=== PATIENT | male | born 1940 | race Caucasian/White ===

== ENCOUNTER 2016-06-14 10:43 | Observation (INO) | payer OTHER ==
[~2016-06-14] VITALS: Ht 170.2 cm; Wt 82.6 kg
[~2016-06-14 10:43] MED LIST: ATIVAN0.5 MG PO; CALCIUM 500 MG1 EACH PO; CALICUM 500+D1 EACH PO; CITALOPRAM HBR10 MG PO; CO Q-10100 MG PO; DAILY VITE1 EAC1 PO; FLOMAX0.4 MG PO; HAWTHORN BERRY PO; IMBRUVICA140 MG PO; K-DUR20 MEQ PO; LASIX20 MG PO; MELATONIN5 M1 PO; MULTI VITAMIN1 EACH PO; MUSCLE RELAXER PO; NEXIUM40 MG PO; OSTERA TABLET1 EACH PO; PREDNISONE10 MG PO; PREDNISONE20 MG PO; PREDNISONE5 MG PO; PREDNISONE50 MG PO; VITAMIN D5000 UNIT PO; XYZAL5 MG PO; ZYRTEC10 M2 PO
[2016-06-14 12:10] LABS: HEMATOCRIT 45.3 % (38.0-50.0); MCH 30.1 PG (29.0-34.0); MCHC 32.9 G/DL (30.0-36.0); MCV 91.5 FL (86-99); MEAN PLAT.VOLUME 10.4 uM^3 (9.0-12.4); RBC DIS.WIDTH-CV 13.9 % (11.8-14.6); RBC DIS.WIDTH-SD 45.3 % (39-53); RED BLOOD COUNT 4.95 M/uL (4.00-5.50)
[2016-06-14 12:13] LABS: PLATELET COUNT 176 K/uL (156-360); WHITE BLOOD COUNT 11.9 K/uL (4.1-10.2)
[2016-06-14 12:24] LABS: CHLORIDE 99 mEq/L (99-109); POTASSIUM 4.5 mEq/L (3.7-5.4); SODIUM 134 mEq/L (136-147)
[2016-06-14 12:25] LABS: GLUCOSE 98 mg/dL (70-99)
[2016-06-14 12:27] LABS: ANION GAP 9 MEQ/L (2-14)
[2016-06-14 12:29] LABS: GFR ESTIMATE (CALCULATED) 57 mL/min/
[2016-06-14 12:30] LABS: UREA NITROGEN (BUN) 20 mg/dL (9-23)
[2016-06-14 14:55] LABS: D-DIMER ELISA 0.81 mg/L FEU (< 0.57)
[2016-06-14 15:00] LABS: LIPASE 17 U/L (1.0-51.0)
[2016-06-14 15:06] LABS: TROP-I INTERPRETATION NEGATIVE; TROPONIN-I < 0.01 ng/mL (0.0-0.30)
[2016-06-14] MEDS ORDERED: IMBRUVICA140 MG PO (17:02)
[2016-06-14] MEDS ORDERED: CALCIUM 500 +1 EACH PO (17:05)
[2016-06-14] MEDS ORDERED: CLEOCIN150 MG PO (17:06)
[2016-06-14] MEDS ORDERED: PREDNISONE10 MG PO ×2 (17:09→17:10)
[2016-06-14] MEDS ORDERED: SYSTANE 0.3-0.1 EACH BOTH EYES (17:09)
[2016-06-14] MEDS ORDERED: TAMSULOSIN HCL0.4 MG PO (17:11)
[2016-06-14] MEDS ORDERED: CITALOPRAM HBR20 MG PO (17:11)
[2016-06-14 19:18] VITALS: BP 114/62
[2016-06-14 22:04] LABS: TROP-I INTERPRETATION NEGATIVE; TROPONIN-I < 0.01 ng/mL (0.0-0.30)
[2016-06-15] VITALS: BP 124/59
[2016-06-15 04:47] VITALS: BP 123/60
[2016-06-15 06:52] LABS: ANION GAP 5 MEQ/L (2-14); CHLORIDE 104 MEQ/L (99-109); GFR ESTIMATE (CALCULATED) > 59 mL/min/; GLUCOSE 79 mg/dL (70-99); POTASSIUM 4.3 MEQ/L (3.7-5.4); SAMPLE HEMOLYSIS CHECK 0; SAMPLE ICTERIC CHECK 0; SAMPLE LIPEMIA CHECK 0; SODIUM 137 MEQ/L (136-147); UREA NITROGEN (BUN) 21 mg/dL (9-23)
[2016-06-15 08:10] VITALS: BP 102/63
[2016-06-15] MEDS ORDERED: AZITHROMYCIN500 M1 PO (11:58)
[2016-06-15 12:12] VITALS: BP 106/64
== END 2016-06-15 14:15 | disposition home or self-care (01) ==
LOC: EME 10:43 → EDOF 16:24 → 5WEST 16:24
PROVIDERS: Emergency Medicine; Internal Medicine
DX: I95.1 Orthostatic hypotension (principal); C91.10 Chronic lymphocytic leukemia of B-cell type not having achieved remission; E87.1 Hypo-osmolality and hyponatremia; M84.48XD Pathological fracture, other site, subsequent encounter for fracture with routine healing; G70.00 Myasthenia gravis without (acute) exacerbation; J32.9 Chronic sinusitis, unspecified; I25.10 Atherosclerotic heart disease of native coronary artery without angina pectoris; Z98.61 Coronary angioplasty status; Z91.040 Latex allergy status
CPT/HCPCS: 70450; 71020; 71275; 80048; 81003; 83690; 84484; 85027; 85379; 93005; 93306; 93880; 99281; 99285; G0378; J1650; J7030

== ENCOUNTER 2016-06-17 12:23 | Inpatient (IN) | payer OTHER ==
[~2016-06-17] VITALS: Ht 170.2 cm; Wt 97.8 kg
[~2016-06-17 12:23] MED LIST changes: +AZITHROMYCIN500 M1 PO; +CALCIUM 500 +1 EACH PO; +CITALOPRAM HBR20 MG PO; +CLEOCIN150 MG PO; +SYSTANE 0.3-0.1 EACH BOTH EYES; +TAMSULOSIN HCL0.4 MG PO
[2016-06-17 14:57] LABS: CHLORIDE 103 mEq/L (99-109); POTASSIUM 5.1 mEq/L (3.7-5.4); SODIUM 134 mEq/L (136-147)
[2016-06-17 15:01] LABS: ANION GAP 10 MEQ/L (2-14); EOSINOPHIL (%) 0 % (0-5); HEMATOCRIT 38.5 % (38.0-50.0); IMMATURE GRANULOCYTE (%) 0.3 % (0.0-0.7); IMMATURE GRANULOCYTE COUNT 0.7 K/uL; LYMPHOCYTE COUNT 1.1 K/uL (1.0-2.8); MCH 30.2 PG (29.0-34.0); MCV 91.4 FL (86-99); MONOCYTE COUNT 1.2 K/uL (0-0.8); NEUTROPHIL (%) 90.1 % (45-76); NEUTROPHIL COUNT 21.4 K/uL (1.8-6.4); RBC DIS.WIDTH-CV 13.6 % (11.8-14.6); RED BLOOD COUNT 4.21 M/uL (4.00-5.50)
[2016-06-17 15:02] LABS: TOTAL BILIRUBIN 2.3 mg/dL (0.0-1.0)
[2016-06-17 15:03] LABS: ALKALINE PHOSPHATASE 64 IU/L (3-129); GFR ESTIMATE (CALCULATED) > 59 mL/min/
[2016-06-17 15:04] LABS: UREA NITROGEN (BUN) 27 mg/dL (9-23)
[2016-06-17 15:05] LABS: D-DIMER ELISA 0.62 mg/L FEU (< 0.57)
[2016-06-17 15:08] LABS: TROP-I INTERPRETATION NEGATIVE; TROPONIN-I < 0.01 ng/mL (0.0-0.30)
[2016-06-17 15:14] LABS: WHITE BLOOD COUNT 23.7 K/uL (4.1-10.2)
[2016-06-17 15:19] LABS: GLUCOSE 110 mg/dL (70-99)
[2016-06-17 15:39] LABS: MEAN PLAT.VOLUME 10.1 uM^3 (9.0-12.4)
[2016-06-17 15:50] LABS: PLATELET COUNT 100 K/uL (156-360)
[2016-06-17] MEDS ORDERED: CO Q-10400 MG PO (18:29)
[2016-06-17] MEDS ORDERED: BACTRIM,SEPT1 TABLET PO (18:44)
[2016-06-17] MEDS ORDERED: ADVIL,NUPRIN,M200 MG PO (18:46)
[2016-06-17] MEDS ORDERED: OCEAN NASAL 0.645 ML BOTH NARES (18:47)
[2016-06-17 19:23] LABS: ADD MIUA? NO; BILIRUBIN NEGATIVE; BLOOD NEGATIVE; COLOR DK YELLOW ((YELLOW)); GLUCOSE (STRIP) NEGATIVE; KETONES NEGATIVE; LEUKOCYTES NEGATIVE; NITRITE NEGATIVE; PROTEIN (STRIP) 30; UROBILINOGEN 0.2 MG/DL (0.2-1.0)
[2016-06-17 20:21] VITALS: BP 125/67
[2016-06-17 22:40] LABS: TROP-I INTERPRETATION NEGATIVE; TROPONIN-I < 0.01 ng/mL (0.0-0.30)
[2016-06-17 23:19] VITALS: BP 120/65
[2016-06-18 03:01] LABS: TROP-I INTERPRETATION NEGATIVE; TROPONIN-I < 0.01 ng/mL (0.0-0.30)
[2016-06-18 03:08] VITALS: BP 119/66
[2016-06-18 06:36] LABS: HEMATOLOGY COMMENT 1 VLB; PLAT.SUFFICIENCY DECREASED
[2016-06-18 07:25] VITALS: BP 125/67
[2016-06-18 09:57] LABS: MCH 30.7 PG (29.0-34.0); MCHC 33.2 G/DL (30.0-36.0); MCV 92.3 FL (86-99); MEAN PLAT.VOLUME 11.2 uM^3 (9.0-12.4); PLATELET COUNT 91 K/uL (156-360); RBC DIS.WIDTH-CV 14.1 % (11.8-14.6); RBC DIS.WIDTH-SD 47.7 % (39-53); RED BLOOD COUNT 4.01 M/uL (4.00-5.50); WHITE BLOOD COUNT 20.5 K/uL (4.1-10.2)
[2016-06-18 10:09] LABS: ANION GAP 8 MEQ/L (2-14); CHLORIDE 106 MEQ/L (99-109); GFR ESTIMATE (CALCULATED) > 59 mL/min/; POTASSIUM 4.3 MEQ/L (3.7-5.4); SAMPLE HEMOLYSIS CHECK 0; SAMPLE ICTERIC CHECK 0; SAMPLE LIPEMIA CHECK 0; SODIUM 134 MEQ/L (136-147); UREA NITROGEN (BUN) 22 mg/dL (9-23)
[2016-06-18 10:10] LABS: GLUCOSE 168 mg/dL (70-99)
[2016-06-18 15:15] VITALS: BP 131/69
[2016-06-18 23:44] VITALS: BP 129/69
[2016-06-19 05:51] LABS: EOSINOPHIL (%) 0.1 % (0-5); HEMATOCRIT 35.3 % (38.0-50.0); IMMATURE GRANULOCYTE (%) 0.2 % (0.0-0.7); LYMPHOCYTE COUNT 1.7 K/uL (1.0-2.8); MCH 30.5 PG (29.0-34.0); MCHC 33.4 G/DL (30.0-36.0); MCV 91.2 FL (86-99); MEAN PLAT.VOLUME 11.3 uM^3 (9.0-12.4); MONOCYTE (%) 3.8 % (3-12); MONOCYTE COUNT 0.6 K/uL (0-0.8); NEUTROPHIL (%) 85.7 % (45-76); NEUTROPHIL COUNT 14.3 K/uL (1.8-6.4); PLATELET COUNT 93 K/uL (156-360); RBC DIS.WIDTH-CV 13.8 % (11.8-14.6); RBC DIS.WIDTH-SD 46.1 % (39-53); RED BLOOD COUNT 3.87 M/uL (4.00-5.50); WHITE BLOOD COUNT 16.6 K/uL (4.1-10.2)
[2016-06-19 06:20] LABS: ANION GAP 6 MEQ/L (2-14); CHLORIDE 105 MEQ/L (99-109); GFR ESTIMATE (CALCULATED) > 59 mL/min/; POTASSIUM 4.5 MEQ/L (3.7-5.4); SAMPLE HEMOLYSIS CHECK 1; SAMPLE ICTERIC CHECK 0; SAMPLE LIPEMIA CHECK 0; SODIUM 132 MEQ/L (136-147); UREA NITROGEN (BUN) 23 mg/dL (9-23)
[2016-06-19 06:23] LABS: GLUCOSE 102 mg/dL (70-99)
[2016-06-19 07:21] VITALS: BP 118/62
== END 2016-06-19 13:42 | disposition home or self-care (01) | DRG 312 ==
LOC: EME 12:23 → 5EAST 18:13 → EDOF 18:13 → 5EAST 19:52
PROVIDERS: Emergency Medicine; Hospitalist; Internal Medicine
DX: I95.1 Orthostatic hypotension (principal); L02.811 Cutaneous abscess of head [any part, except face]; C91.10 Chronic lymphocytic leukemia of B-cell type not having achieved remission; C85.80 Other specified types of non-Hodgkin lymphoma, unspecified site; G70.00 Myasthenia gravis without (acute) exacerbation; I10 Essential (primary) hypertension; I25.10 Atherosclerotic heart disease of native coronary artery without angina pectoris; E78.5 Hyperlipidemia, unspecified; D69.6 Thrombocytopenia, unspecified; E66.9 Obesity, unspecified; Z68.33 Body mass index [BMI] 33.0-33.9, adult; Z95.5 Presence of coronary angioplasty implant and graft; Z79.52 Long term (current) use of systemic steroids
CPT/HCPCS: 70450; 71260; 74176; 80048; 80053; 80400; 81003; 82533 91; 83605; 84484; 85025; 85027; 85379; 87040; 87070; 87075; 87077; 87186; 87205; 93005; 95819; 99281; 99285; J0696; J0834; J1100; J7030; J7050; J7512

== ENCOUNTER 2017-02-05 10:54 | Inpatient (IN) | payer OTHER ==
[~2017-02-05] VITALS: Ht 170.2 cm; Wt 98.6 kg
[~2017-02-05 10:54] MED LIST changes: +ADVIL,NUPRIN,M200 MG PO; +BACTRIM,SEPT1 TABLET PO; +CO Q-10400 MG PO; +OCEAN NASAL 0.645 ML BOTH NARES; +VITAMIN D35000 UNIT PO; -VITAMIN D5000 UNIT PO
[2017-02-05 11:57] LABS: MCH 30.7 PG (29.0-34.0); MCHC 32.8 G/DL (30.0-36.0); MCV 93.6 FL (86-99); MEAN PLAT.VOLUME 11.9 uM^3 (9.0-12.4); PLATELET COUNT 99 K/uL (156-360); RBC DIS.WIDTH-CV 13.7 % (11.8-14.6); RBC DIS.WIDTH-SD 46.7 % (39-53); RED BLOOD COUNT 5.02 M/uL (4.00-5.50); WHITE BLOOD COUNT 8.5 K/uL (4.1-10.2)
[2017-02-05 12:18] LABS: CHLORIDE 106 mEq/L (99-109); POTASSIUM 4.2 mEq/L (3.7-5.4); SODIUM 139 mEq/L (136-147)
[2017-02-05 12:20] LABS: GLUCOSE 145 mg/dL (70-99); TROP-I INTERPRETATION NEGATIVE; TROPONIN-I 0.07 ng/mL (0.0-0.30)
[2017-02-05 12:21] LABS: ANION GAP 9 MEQ/L (2-14)
[2017-02-05 12:22] LABS: TOTAL BILIRUBIN 1.3 mg/dL (0.0-1.0)
[2017-02-05 12:24] LABS: ALKALINE PHOSPHATASE 81 IU/L (3-129); GFR ESTIMATE (CALCULATED) 57 mL/min/
[2017-02-05 12:25] LABS: UREA NITROGEN (BUN) 24 mg/dL (9-23)
[2017-02-05] MEDS ORDERED: TEMOVATE 0.05%30 GM TP (13:48)
[2017-02-05] MEDS ORDERED: HAWTHORN500 MG PO (13:49)
[2017-02-05] MEDS ORDERED: CALCIUM 500 MG1 EACH PO (13:50)
[2017-02-05 16:10] VITALS: BP 124/74
[2017-02-05 18:59] LABS: TROP-I INTERPRETATION INDETERMINATE; TROPONIN-I 0.56 ng/mL (0.0-0.30)
[2017-02-05 19:13] VITALS: BP 156/76
[2017-02-05 21:19] LABS: PTT 29.9 SEC (25-37)
[2017-02-05 23:28] VITALS: BP 120/58; BP 130/78
[2017-02-06 01:17] LABS: TROP-I INTERPRETATION POSITIVE
[2017-02-06 01:18] LABS: TROPONIN-I 1.22 ng/mL (0.0-0.30)
[2017-02-06 04:17] VITALS: BP 139/80
[2017-02-06 07:47] LABS: ANION GAP 9 MEQ/L (2-14); CHLORIDE 103 MEQ/L (99-109); POTASSIUM 3.9 MEQ/L (3.7-5.4); SAMPLE HEMOLYSIS CHECK 0; SAMPLE ICTERIC CHECK 0; SAMPLE LIPEMIA CHECK 0; SODIUM 139 MEQ/L (136-147); TOTAL BILIRUBIN 1.4 MG/DL (0.0-1.0)
[2017-02-06 07:53] LABS: ALKALINE PHOSPHATASE 62 IU/L (3-129); GFR ESTIMATE (CALCULATED) 57 mL/min/; UREA NITROGEN (BUN) 24 mg/dL (9-23)
[2017-02-06 07:55] LABS: GLUCOSE 100 mg/dL (70-99)
[2017-02-06 08:49] LABS: TROP-I INTERPRETATION POSITIVE; TROPONIN-I 1.03 ng/mL (0.0-0.30)
[2017-02-06 09:00] VITALS: BP 143/69
[2017-02-06 12:15] VITALS: BP 126/74
[2017-02-06 15:55] VITALS: BP 148/81
[2017-02-06 19:35] VITALS: BP 116/66
[2017-02-06 23:45] VITALS: BP 137/72
[2017-02-07 04:23] VITALS: BP 130/78
[2017-02-07 05:11] LABS: HEMATOCRIT 47.8 % (38.0-50.0); MCH 31.5 PG (29.0-34.0); MCHC 33.3 G/DL (30.0-36.0); MCV 94.7 FL (86-99); PLATELET COUNT 91 K/uL (156-360); RBC DIS.WIDTH-CV 13.9 % (11.8-14.6); RBC DIS.WIDTH-SD 48.2 % (39-53); RED BLOOD COUNT 5.05 M/uL (4.00-5.50); WHITE BLOOD COUNT 8.1 K/uL (4.1-10.2)
[2017-02-07 05:33] LABS: PROTHROMBIN TIME 11.3 SEC (10.2-12.9)
[2017-02-07 05:36] LABS: PTT 60.6 SEC (25-37)
[2017-02-07 06:17] LABS: ANION GAP 7 MEQ/L (2-14); CHLORIDE 103 MEQ/L (99-109); GFR ESTIMATE (CALCULATED) > 59 mL/min/; GLUCOSE 103 mg/dL (70-99); POTASSIUM 4.1 MEQ/L (3.7-5.4); SAMPLE HEMOLYSIS CHECK 0; SAMPLE ICTERIC CHECK 0; SAMPLE LIPEMIA CHECK 0; SODIUM 139 MEQ/L (136-147); UREA NITROGEN (BUN) 22 mg/dL (9-23)
[2017-02-07 07:50] VITALS: BP 151/65
[2017-02-07 11:30] VITALS: BP 127/64
[2017-02-07 16:04] VITALS: BP 122/62
[2017-02-07 19:37] VITALS: BP 109/60
[2017-02-07 23:00] VITALS: BP 132/67
[2017-02-08 01:30] VITALS: BP 134/68
== END 2017-02-08 07:40 | disposition short-term general hospital (02) | DRG 281 ==
LOC: EME 10:54 → 5WEST 13:26 → EDOF 13:26 → ENRESERV 13:34 → 5WEST 15:49 → 4EAST 20:46 → ENRESERV 02-06 11:00 → 4EAST 02-06 15:29
PROVIDERS: Emergency Medicine; Internal Medicine; Nurse Practitioner Adult Health; Physician Assistant Medical
DX: I21.4 Non-ST elevation (NSTEMI) myocardial infarction (principal); C91.10 Chronic lymphocytic leukemia of B-cell type not having achieved remission; N18.3 Chronic kidney disease, stage 3 (moderate); I12.9 Hypertensive chronic kidney disease with stage 1 through stage 4 chronic kidney disease, or unspecified chronic kidney disease; G70.00 Myasthenia gravis without (acute) exacerbation; D69.6 Thrombocytopenia, unspecified; I95.9 Hypotension, unspecified; K21.9 Gastro-esophageal reflux disease without esophagitis; E78.5 Hyperlipidemia, unspecified; I25.10 Atherosclerotic heart disease of native coronary artery without angina pectoris; M81.0 Age-related osteoporosis without current pathological fracture; Y83.1 Surgical operation with implant of artificial internal device as the cause of abnormal reaction of the patient, or of later complication, without mention of misadventure at the time of the procedure; I25.2 Old myocardial infarction; Z85.72 Personal history of non-Hodgkin lymphomas; Z79.52 Long term (current) use of systemic steroids; Z86.73 Personal history of transient ischemic attack (TIA), and cerebral infarction without residual deficits; Z82.49 Family history of ischemic heart disease and other diseases of the circulatory system
CPT/HCPCS: 71020; 80048; 80053; 84484; 85027; 85610; 85730; 93005; 99281; 99285; C1750; C1769; C1887; J1644; J2250; J3010; J7030; J7040